=== PATIENT | female | born 1965 | race Caucasian/White ===

== ENCOUNTER 2025-08-28 10:43 | Outpatient (CLI) | payer BC, SELFPAY ==
[2025-08-28 11:24] LABS: #Basophils 0.1 thou/uL (0.0-0.2); #Eosinophils 0.1 thou/uL (0.0-0.7); #Lymphocytes 2.2 thou/uL (1.20-3.40); #Monocytes 0.7 thou/uL (0.11-0.59); #Neutrophils 3.6 thou/uL (1.40-6.50); %Basophils 1.3 % (0.0-1.0); %Eosinophils 0.9 % (0.0-10.0); %Lymphocytes 32.7 % (21.0-51.0); %Monocytes 10.2 % (0.0-10.0); %Neutrophils 55.0 % (42.0-75.0); Hematocrit 41.3 % (36.0-47.0); Hemoglobin 13.0 g/dL (12.0-16.0); Mean Corpuscular Hemoglobin 27.5 pg (27.0-31.0); Mean Corpuscular Volume 87.1 fl (78.0-98.0); Platelet Count 282 10x3/uL (130-400); Red Blood Cell (RBC) Count 4.74 mill/uL (4.20-5.40); White Blood Cell (WBC) Count 6.6 10x3/uL (4.8-10.8)
== END 2025-08-28 10:44 | disposition home or self-care (01) ==
LOC: MADLAB 10:43
DX: Z01.812 Encounter for preprocedural laboratory examination (principal)
CPT/HCPCS: 36415; 85025